=== PATIENT | male | born 1960 | race Caucasian/White ===

== ENCOUNTER 2018-07-28 06:43 | Day surgery (SDC) | payer OTHER ==
[~2018-07-28] VITALS: Ht 182.9 cm; Wt 78.9 kg
[~2018-07-28 06:43] MED LIST: CLOPIDOGREL75 MG PO; CYMBALTA60 MG PO; GABAPENTIN400 M2 PO; HYDRALAZINE50 MG PO; LABETALOL300 MG PO; LOSARTAN POT100 MG PO; NIFEDIAC CC30 MG PO; NORCO1 TA2 PO; NOVOLIN 70/30 INNLT SC; PRILOSEC20 MG PO; SPIRONOLACT25 MG PO
[2018-07-28 08:12] VITALS: BP 198/91
[2018-08-09] MEDS ORDERED: NORCO1 TA2 PO (12:46)
== END 2018-07-28 08:40 | disposition home or self-care (01) ==
LOC: ORM 06:43
PROVIDERS: ATTEND Anesthesiology Pain Medicine
DX: M96.1 Postlaminectomy syndrome, not elsewhere classified (principal); M54.5 Low back pain